=== PATIENT | male | born 1995 | race Caucasian/White ===

== ENCOUNTER 2022-10-19 14:05 | Emergency (ER) | payer OTHER ==
[~2022-10-19 14:05] MED LIST: Lidocaine 1% with EPINEPHrine 1:100,000 50 ML MDV INFILT ONE; Lidocaine 1% with EPINEPHrine 1:100,000 50 ML MDV INJECT ONE
[2022-10-19] MEDS ORDERED: Morphine 4 MG/ML VIAL IVPUSH ONE (14:19)
[2022-10-19] MEDS ORDERED: Sodium Chloride 0.9% 1,000 ML IV SCH (14:30)
[2022-10-19] MEDS: Lidocaine 1% with EPINEPHrine 1:100,000 20 ML MDV INJECT ONE ×2 (14:58→18:57)
[2022-10-19] MEDS ORDERED: fentaNYL 100 MCG/2 ML SDV IVPUSH PRN (15:30)
[2022-10-19] MEDS ORDERED: Diphtheria,Pertussis(Acell),Tetanus Vaccine 0.5 ML Syringe IM ONE (15:37)
[2022-10-19] MEDS ORDERED: Amoxicillin 500 MG Cap PO ONE (15:41)
[2022-10-19] MEDS ORDERED: Ketorolac 60 MG/2 ML SDV IVPUSH ONE (15:42)
[2022-10-19] MEDS: Ketorolac 30 MG/ML SDV ONE ×2 (16:14→16:19)
[2022-10-19] MEDS ORDERED: Ibuprofen 400 MG Tab ONE (18:30)
[2022-10-19] MEDS ORDERED: Acetaminophen/HYDROcodone 325-5 MG Tab ONE (18:30)
== END 2022-10-19 18:55 | disposition home or self-care (01) ==
LOC: LB.ED 14:05
DX: S62.392A Other fracture of third metacarpal bone, right hand, initial encounter for closed fracture (principal); S61.411A Laceration without foreign body of right hand, initial encounter; Z23 Encounter for immunization; W20.8XXA Other cause of strike by thrown, projected or falling object, initial encounter; Y99.0 Civilian activity done for income or pay
CPT/HCPCS: 12002; 26605; 73120; 73130; 90471; 90715; 96361; 96374; 96375; 99283; A9270; J1885; J2270; J3010; J7030